=== PATIENT | female | born 1990 | race Caucasian/White ===

== ENCOUNTER 2025-08-19 08:54 | Emergency (ER) | payer OTHER, SELFPAY ==
--- NOTE | ~2025-08-19 | XR_ITS ---
EXAMINATION: XR knee RT min 4V, 08/19/2025 9:14 CDT HISTORY: swelling and pain right knee COMPARISON: No comparisons available. Findings: No acute fracture or malalignment. No significant degenerative changes. Soft tissues unremarkable. Impression: No acute fracture or malalignment. Reviewed, dictated and finalized at location P. Impression: No acute fracture or malalignment.
[2025-08-19 09:00] VITALS: BP 111/92; PULSE 65; RESP 20; TEMP 36.7; O2SAT 100
--- NOTE | 2025-08-19 09:12 | ED_ITS ---
HPI - General Adult General Chief complaint: Extremity Problem,Nontraumatic Stated complaint: Right knee pain and swelling Time Seen by Provider: 08/19/25 09:12 Source: patient, RN notes reviewed and old records reviewed Mode of arrival: ambulatory Limitations: no limitations History of Present Illness HPI narrative: 34 year old female presents to express care with complaints of pain swelling to the right knee starting on Tuesday morning. 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 Patient states that on Tuesday she could apply minimal weight bearing to her right leg and started with pain to the medial aspect of her right knee with radiation of pain into medial thigh area with most swelling noted to the lateral aspect. Patient states that she can tolerate weight bearing better today but continues with pain and swelling. Patient has used ice, elevation, and compression to right knee and has taken Aleve and Tylenol for her discomfort. MD complaint: right knee pain and swelling Onset (ago): day(s) (day 2 of symptoms) Location: right (knee) and lower extremity Radiation: other (into lateral thigh) Severity: moderate Severity scale (1-10): 6 Treatments prior to arrival: cold therapy and other (compression, Aleve and Tylenol) Related Data Home Medications ?Medication ?Instructions ?Recorded ?Confirmed ?Last Taken ?Type venlafaxine 37.5 mg mg PO 08/19/25 Unknown Hist ory capsule,extended release 24 hr Allergies Allergy/AdvReac Type Severity Reaction Status Date / Time adhesive Allergy Unknown Unknown Verified 08/19/25 09:07 strawberry Allergy Unknown Unknown Verified 08/19/25 09:07 Review of Systems Review of Systems: CONSTITUTIONAL: Denies fever, chills, or sweats. EYES: Denies visual changes, redness, or discharge. ENT: Denies rhinorrhea, congestion, sore throat, or otalgia. CARDIOVASCULAR: Denies chest pain, palpitations, or edema. RESPIRATORY: Denies cough or dyspnea. GASTROINTESTINAL: Denies abdominal pain, nausea, vomiting, or diarrhea. GENITOURINARY: Denies dysuria or hematuria. SKIN: Denies rash or itching. MUSCULOSKELETAL: Denies back pain,positive for right knee swelling and medial pain, or myalgia. NEUROLOGIC: Denies headache, numbness, or weakness. PSYCHIATRIC: positive for history of anxiety or depression. All systems reviewed & are unremarkable except as noted in HPI and below PMFSH Past Medical History Medical History (Updated 08/20/25 @ 07:49 by Cathy Cook NP) Anxiety and depression Surgical History Surgical History (Updated 08/19/25 @ 09:50 by Cathy Cook NP) H/O bariatric surgery 2021 Social History Social History (Updated 08/19/25 @ 09:29 by Cathy Cook NP) Smoking status: Never smoker Alcohol intake: current Alcohol use details: social Substance use type: does not use Comments At time of signature, agree with nursing past medical, surgical, social and family history. There is no relevant family history pertinent to the presenting complaint Exam Narrative: GENERAL: Well-appearing, well-nourished, and in no acute distress. HEAD: Normocephalic, atraumatic. EYES: PERRLA and EOMI. ENT: Nares clear, no rhinorrhea or epistaxis. Mucous membranes moist. NECK: Supple. no lymphadenopathy CHEST: Clear to auscultation. No respiratory distress.[id number]% on room air HEART: Regular rate and rhythm. No murmur heard. Normal peripheral pulses. ABDOMEN: Soft, nontender, nondistended, normal active bowel sounds. EXTREMITIES: Normal range of motion. No edema.EXCEPTION noted to right knee pain medial aspect with some radiation of pain to medial thigh region with swelling noted mainly to right lateral knee, stability of knee intact is able to bear weight with some limp noted, able to bend knee with some increased pain circulation and sensation intact to right leg and foot. SKIN: Warm, dry, no rash. NEURO: No focal deficits. Alert and oriented x3. Course Course Emergency Course: Patient is aware of diagnosis, understands and agrees to treatment plan.? Anticipatory guidance given.? Patient agrees to follow-up as directed and is aware of reasons to seek care at the emergency department. Portions of this record may have been created with voice recognition software Level of Care: Express Care Visit Vital Signs Vital signs: Vital Signs Temperature 36.7 C 08/19/25 09:00 Pulse Rate 65 08/19/25 09:00 Respiratory Rate 20 08/19/25 09:00 Blood Pressure 111/92 H 08/19/25 09:00 Pulse Oximetry 100 08/19/25 09:00 Oxygen Delivery Room Air 08/19/25 09:00 Temperature 36.7 C 08/19/25 09:00 Pulse Rate 65 08/19/25 09:00 Respiratory Rate 20 08/19/25 09:00 Blood Pressure 132/79 08/19/25 09:50 Pulse Oximetry 100 08/19/25 09:00 Oxygen Delivery Room Air 08/19/25 09:00 Reviewed Medical Decision Making MDM Narrative Medical decision making narrative: Exam findings and imaging show no acute concerns or changes; patient is non- toxic appearing and is in no distress.? Patient is appropriate for outpatient treatment and follow-up Differential Diagnosis Differential Diagnosis: right knee pain, strain of right knee, swelling right knee Medical Records Medical records reviewed: Yes I reviewed the external patient's medical records. Vital Signs Vital Signs: Vital Signs Temperature 36.7 C 08/19/25 09:00 Pulse Rate 65 08/19/25 09:00 Respiratory Rate 20 08/19/25 09:00 Blood Pressure 111/92 H 08/19/25 09:00 Pulse Oximetry 100 08/19/25 09:00 Oxygen Delivery Room Air 08/19/25 09:00 Temperature 36.7 C 08/19/25 09:00 Pulse Rate 65 08/19/25 09:00 Respiratory Rate 20 08/19/25 09:00 Blood Pressure 132/79 08/19/25 09:50 Pulse Oximetry 100 08/19/25 09:00 Oxygen Delivery Room Air 08/19/25 09:00 reviewed Imaging Data Attestation: I personally reviewed and interpreted this imaging study as follows: My impression: no acute fracture or mal alignment of right knee Radiologist's impression: JANICE Long [id number] XRay Report Signed Patient: David Correa : 1990 MR#: [id number] Age: 34 Acct:[id number] Loc: [facility] ADM Date: 08/19/[address]: Ordering Physician: Cathy Cook APRN Date of Service: 08/19/25 Procedure(s): XR knee RT min 4V Accession Number(s): [id number] cc: Courtney, Tor; Cathy Cook APRN~ EXAMINATION: XR knee RT min 4V, 08/19/2025 9:14 CDT HISTORY: swelling and pain right knee COMPARISON: No comparisons available. Findings: No acute fracture or malalignment. No significant degenerative changes. Soft tissues unremarkable. Impression: No acute fracture or malalignment. Reviewed, dictated and finalized at location P. Please be advised this is a medical document. It is intended for [id number] communication. It is written in medical language and may contain unfamiliar abbreviations or verbiage. Medical documents are intended to carry relevant information, facts as evident, and the clinical opinion of the practitioner at the time of the encounter. This report may have been done utilizing a voice recognition system. Attempts have been made to correct errors. However, there may be uncorrected grammatical, spelling, and recognition errors present. The file time of this note does not necessarily represent the time of service. Dictated By: Kevin Lim MD 08/19/25 0938 Signed By: <Electronically signed by Kevin Lim MD in OV> Critical Care Time Critical Care Time Critical Care Time: No Discharge Plan Discharge Clinical Impression: Right knee pain Qualifiers: Chronicity: acute Qualified Code(s): M25.561 - Pain in right knee Patient Disposition: Home Condition: Stable Instructions: Antibiotic Form, Knee Pain (ED) Additional Instructions: Elastic wrap or orthopedic splint (Neoprene sleeve) as directed for comfort for the next 5-7 days Tylenol for pain recommend Arthritis Strength 650mg take 1 tab routinely every 8 hours Encourage range of motion exercises to right knee Follow-up with orthopedic surgeon if any further complaints or concerns Follow-up with PCP if further problems or concerns Ice to the area 20-30 minutes 4-6 times a day Elevate above heart If your symptoms persist, change or worsen significantly before you can contact your personal physician then please, without delay, go to the emergency department for further evaluation. Follow-up with PCP in 7-10 days or sooner if needed Follow up with PCP soon in regards to your blood pressure which is elevated above threshold for referral. Blood pressure above 120/80 may indicate pre- hypertension.132/79 Patient Language: Turkish Prescriptions: No Action venlafaxine 37.5 mg capsule,extended release 24hr PO Follow-up/Referrals: Courtney,MD Tor [Primary Care Provider, Unknown] Time of Disposition: 09:49 Quality Karli Coma Scale Eyes: Open Verbal: Oriented and Alert Motor: Follows Commands Karli Coma Total Score: 15
--- OUTSIDE RECORDS SUMMARY | 2025-08-19 09:16 | XMS_ITS | Clinical Summary ---
Author Organization [facility] Building B Address [address] [place] [address] Care Team Providers Care Jockey Valet Name Role Phone Manolo Liriano MD Unavailable [phone] Ethan Lala MD Unavailable [phone] Tor Valdez MD Primary Care Provider [phone] Allergies Active Allergy Reactions Criticality Noted Date Comments Adhesive Tape-Silicones Rash Medium 11/05/2018 Lisinopril Cough Low 09/11/2019 Phentermine Headache Low 08/28/2015 [place] Rash Medium Medications vit 38-khua-vbzue-d wood 27mg iron- 800 mcg-250 mg capsule Take by mouth Active blood-glucose meter kit Accu-chek Guide Meter, Test Strips and Lancets. Pt will be testing QID. Quantity 100 with 2 refills on the Test Strips and Lancets. 1 kit 5 Active Additional Information Patient not taking.Reported on 06/07/2025 venlafaxine XR (EFFEXOR-XR) 37.5 mg 24 hr capsule Take 1 capsule (37.5 mg total) by mouth daily 90 capsule 1 5 Active valACYclovir (Valtrex) 1 gram tablet Take 2 tablets BID now and repeat in 12 hours for an episodic dose. 30 tablet 5 Active norethindrone-e .estradioL-iron (LOESTIN 24 FE) 1 mg-20 mcg (24)/75 mg (4) per tablet Take 1 tablet by mouth daily 28 tablet 1 5 07/17/20 26 Active Hospital, Clinic, or Other Facility Administered Medication Ordered Dose Route Frequency Start Date End Date Status etonogestreL (NEXPLANON) implant 68 mgIndications:Pregna ncy Contraception 68 mg subderm Continuous (implanted device) 06/11/2025 06/10/2028 Active Active Problems Problem Noted Date Diagnosed Date Annual physical exam 12/06/2024 Trochanteric bursitis of left hip 03/28/2024 Spinal stenosis of lumbar re gion without neurogenic claudication 03/06/2024 Lumbar radiculopathy 02/15/2024 Generalized anxiety disorder 08/02/2023 Assessment & Plan (12/06/2024 11:53 AM AUTOMATIC BOW MAKER MACHINE TENDER): Chronic condition, stable at this time but notes some mood swings during her 1st trimester of . ROSEANN-7 score: 0 Not currently on PRN medication for anxiety. Continue Effexor 37.5mg PO daily. Assessment & Plan (11/21/2023 6:55 PM AUTOMATIC BOW MAKER MACHINE TENDER): Stable. Cont. Current prescription medications, venlafaxine xr. Assessment & Plan (09/08/2023 12:29 PM CDT): Clinically improved, continue current prescription medications, venlafaxine XR. Assessment & Plan (08/02/2023 3:13 PM CDT): Will restart Effexor XR. Strongly encouraged patient to start going to counseling as well, for herself. H/O herpes simplex infection 06/07/2023 S/P bariatric surgery 11/15/2022 Overview (12/14/2024): 08/30/2022 gastric bypass Assessment & Plan (11/15/2022 8:57 AM AUTOMATIC BOW MAKER MACHINE TENDER): Doing well, modify diet, increase daily exercise. Osteoarthritis of left hip 03/15/2022 Major depressive disorder, s igor episode, in full remission 03/15/2022 Assessment & Plan (12/06/2024 12:05 PM AUTOMATIC BOW MAKER MACHINE TENDER): Chronic condition. Stable at this time. PHQ-9 score today: 0 Continue Effexor 37.5mg PO daily. Emergent BH information given, including 911 with any change such as SI/HI. Seasonal allergic rhinitis due to pollen 022 Assessment & Plan (01/19/2022 10:18 AM CDT): Nasal saline spray (Simply saline, Little Remedies, [place], [place]) 2 second sprays or 2 squeezes into each nostril while looking down over the sink, do not need to sniff in. Followed by Flonase 2 sprays into each nostril while looking down over the sink, do not sniff in or blow nose after use for at least 30 minutes daily Followed by Aquaphor apply pea-size amount into each nostril with a cotton tipped applicator, being carefully just to tuck it into each nostril, then massage soft portion of the outer nose to massage the ointment around inside the nose Humidifier at bedtime Follow up if no improvement in 6 weeks for reflux treatment Mass of soft palate 01/19/2022 Assessment & Plan (01/19/2022 10:19 AM CDT): Call for uvula squamous papilloma removal in Office in the future Dysfunction of left eustachian tube 01/19/2022 Assessment & Plan (01/19/2022 10:24 AM CDT): Nasal saline spray (Simply saline, Little Remedies, [place], [place]) 2 second sprays or 2 squeezes into each nostril while looking down over the sink, do not need to sniff in. Followed by Flonase 2 sprays into each nostril while looking down over the sink, do not sniff in or blow nose after use for at least 30 minutes daily Followed by Aquaphor apply pea-size amount into each nostril with a cotton tipped applicator, being carefully just to tuck it into each nostril, then massage soft portion of the outer nose to massage the ointment around inside the nose Humidifier at bedtime Follow up if no improvement in 6 weeks for reflux treatment H/O epistaxis 01/19/2022 Assessment & Plan (01/19/2022 10:25 AM CDT): Nasal saline spray (Simply saline, Little Remedies, [place], [place]) 2 second sprays or 2 squeezes into each nostril while looking down over the sink, do not need to sniff in. Followed by Flonase 2 sprays into each nostril while looking down over the sink, do not sniff in or blow nose after use for at least 30 minutes daily Followed by Aquaphor apply pea-size amount into each nostril with a cotton tipped applicator, being carefully just to tuck it into each nostril, then massage soft portion of the outer nose to massage the ointment around inside the nose Humidifier at bedtime Insomnia secondary to chronic pain 02/26/2021 Overview (10/19/2024): Left hip pain. FH: colon cancer in first degree relative <60 ye ars old 02/02/2021 Chronic left hip pain 02/02/2021 Assessment & Plan (12/06/2024 12:01 PM AUTOMATIC BOW MAKER MACHINE TENDER): Chronic problem, unstable at this time with a flareup 1 week ago Has been seeing a chiropractor with minimal help Consider MSK relaxant per ENDLESS TRACK VEHICLE SUPERVISOR due to current gestation Recommend heat pads, yoga, gentle stretching exercises to help with relief and strengthening. Assessment & Plan (02/02/2021 4:52 PM CDT): X-rays ordered. Referral placed to Pain Management. Continue [id number]-uswatus pain relievers as needed for pain. Gastroesophageal reflux disease without esophagi tis 02/02/2021 Assessment & Plan (02/02/2021 4:51 PM CDT): Asx. Continue current therapy. History of kidney stones 09/14/2019 Overview (09/14/2019): Added automatically from request for surgery [id number] Class 1 obesity due to exces s calories with serious comorbidity and body mass index (BMI) of 31.0 to 31.9 in adult 12/31/2017 Overview (12/31/2017): Low fat, low carb diet, exercise and weight loss encouraged. Assessment & Plan (05/17/2024 9:43 AM CDT): Wt Readings from Last 3 Encounters: 05/17/24 88.4 kg (194 lb 14.4 oz) 02/06/24 87.1 kg (192 lb) 01/31/24 90.4 kg (199 lb 6.4 oz) BMI Readings from Last 3 Encounters: 05/17/24 31.47 kg/m 02/06/24 30.99 kg/m 01/31/24 32.18 kg/m Not at goal of bmi <30 Continue diet and exercise BMI Follow-up includes: nutrition counseling and exercise counseling. Assessment & Plan (11/15/2022 8:56 AM AUTOMATIC BOW MAKER MACHINE TENDER): Clinically improving. Weight reduction, daily exercise and dietary modifications recommended., as obesity can complicate their hypertension Assessment & Plan (09/23/2022 9:55 AM AUTOMATIC BOW MAKER MACHINE TENDER): Wt Readings from Last 3 Encounters: 09/23/22 132 kg (291 lb) 09/22/22 131.7 kg (290 lb 6.4 oz) 09/06/22 136 kg (299 lb 12.8 oz) BMI Readings from Last 3 Encounters: 09/23/22 46.99 kg/m 09/22/22 46.87 kg/m 09/06/22 48.39 kg/m Improving and s/p bariatric surgery Not at goal of bmi <30 Continue diet and exercise BMI Follow-up includes: nutrition counseling and exercise counseling. Assessment & Plan (05/11/2022 12:39 PM CDT): Patient seeking bariatric surgery. Encouraged dietary modifications. Assessment & Plan (02/02/2021 4:53 PM CDT): Weight reduction, daily exercise and dietary modifications recommended. Assessment & Plan (01/01/2019 9:45 PM AUTOMATIC BOW MAKER MACHINE TENDER): Encourage a weight loss program such as Weight Watchers incorporating dietary changes and aerobic / weight-bearing exercise at least 4-5 times per week, for at least 30-45 minute sessions. Gout 03/23/2014 Overview (02/11/2017): Gout Assessment & Plan (11/15/2022 8:58 AM AUTOMATIC BOW MAKER MACHINE TENDER): Currently asymptomatic. Labs ordered, will follow. Migraine without aura and wi thout status migrainosus, not intractable 03/23/2014 Overview (02/09/2017): Migraine Assessment & Plan (02/02/2021 4:53 PM CDT): Clinically improved, continue current meds. Resolved Problems Problem Noted Date Diagnosed Date Resolved Date 39 weeks gestation of 04/27/2025 06/07/2025 Vaginal delivery 04/27/2025 06/07/2025 Low-lying placenta 12/20/2024 Overview (02/08/2025): Resolved 02/08/25. Morbid (severe) obesity due to excess calories 08/30/2022 11/15/2022 Assessment & Plan (09/23/2022 9:55 AM AUTOMATIC BOW MAKER MACHINE TENDER): BMI Follow-up includes: nutrition counseling and exercise counseling. Abnormal weight gain 05/11/2022 023 Assessment & Plan (05/11/2022 12:39 PM CDT): Patient has been seeing the aeronautical test engineer for the past few months. Encouraged dietary modification. Increase daily exercise. Nail fungus 04/07/2022 12/14/2024 Assessment & Plan (04/07/2022 2:03 PM CDT): Referred to podiatry for further eval/mgmt. BMI 50.0-59.9, adult 03/15/2022 022 Morbid obesity 03/15/2022 04/07/2022 Referred otalgia of left ear 01/19/2022 11/15/2022 Assessment & Plan (01/19/2022 10:23 AM CDT): TMJ dysfunction discussed and Handout provided Sacroiliitis 02/26/2021 01/31/2024 Greater trochanteric bursitis of left hip 02/26/2021 11/15/2022 Primary hypertension 02/02/2021 024 Overview (10/19/2024): Resolved after gastric bypass; off meds since 2022. Assessment & Plan (05/17/2024 9:46 AM CDT): BP Readings from Last 3 Encounters: 05/17/24 90/74 04/11/24 96/63 03/28/24 114/75 Vitals BP 90/74 (BP Location: Left arm, Patient Position: Sitting) Pulse 65 Resp 16 Ht 167.6 cm (5' 5.98) Wt 88.4 kg (194 lb 14.4 oz) SpO2 100% BMI 31.47 kg/m Lab Results Component Value Date POTASSIUM 4.2 11/16/2023 Low end of normal BP Will cut metoprolol to 25 mg every day xl Had some bradycardia And bp has been well controlled Assessment & Plan (11/21/2023 6:55 PM AUTOMATIC BOW MAKER MACHINE TENDER): Blood pressure at goal less than 140/90, continue current prescription medications, metoprolol xl. Assessment & Plan (11/15/2022 8:58 AM AUTOMATIC BOW MAKER MACHINE TENDER): Blood pressure is at goal of less than 140/90, continue current prescription medications, metoprolol XL. Assessment & Plan (09/23/2022 9:55 AM AUTOMATIC BOW MAKER MACHINE TENDER): BP Readings from Last 3 Encounters: 09/23/22 123/82 09/22/22 124/84 09/06/22 122/85 At goa - continue current regimen - currently on torpol xl 50 mg every day Assessment & Plan (05/11/2022 12:38 PM CDT): BP at goal of < 140/90. Cont current Rx meds. Assessment & Plan (02/02/2021 4:51 PM CDT): Clinically improved, continue current meds. Chronic left-sided low back pain without sciatica 12/25/2014 01/31/2024 Overview (02/11/2017): Pain in lower back Assessment & Plan (02/02/2021 4:52 PM CDT): X-ray of lumbar spine ordered. Referral placed to pain management for further evaluation. Continue [id number] pain relievers of choice. Long discussion about decrease in weight, lower back exercises, and daily exercise. Encounters Date Type Department Care Team Description 07/17/2025 Telephone [place] [facility] [address] [employer] [address] [place] [address] Natalie Phelps RN Change OC/Done Nursing 07/09/2025 9:45 AM CDT Office Visit [place] [facility] [address] [facility] [address] [place] [address] Allison Mo NP Encounter for surveillance of Nexplanon subdermal contraceptive (Primary Dx); Breakthrough bleeding on Nexplanon 07/05/2025 Telephone [place] [facility] [address] [place] [phone] Allison Mo NP Appointment Reminder Call 06/12/2025 Telephone [place] [facility] [address] [facility] [address] [place] [phone] Natalie Phelps RN HSV I Outbreak 06/12/2025 Results Follow-Up [place] [facility] [address] [facility] [address] [place] [phone] Manolo Liriano MD Pap and HPV, reflex to HPV Genotypes 06/11/2025 1:00 PM CDT Procedure visit [place] [facility] [address] [facility] [address] [place] [phone] Allison Mo, MICHELLE Nexplanon insertion (Primary Dx) 06/07/2025 8:45 AM CDT Office Visit [place] [facility] [address] [place] [address] Manolo Liriano MD Encounter for visit (Primary Dx); Cervical high risk HPV (human papillomavirus) test positive 06/06/2025 Telephone [place] [facility] [employer] [address] [place] [address] Manolo Liriano MD from Last 3 Months Immunizations Immunization Administration Dates Next Due DTP 05/07/1993 DTaP 04/22/1998,11/12/1994 DTaP / HiB / IPV 05/07/1993,02/23/1993, 3 HPV, Quadrivalent 10/13/2007,06/12/2007,04/11/20 07 Hep A, Adult 10/13/2007,04/11/2007 Hep B Vaccine 05/07/1993,1992,1992 Hep B, Adolescent or Pediatric 05/07/1993 HiB 05/07/1993 Hib (HbOC) 11/12/1994 IPV 11/12/1994 Influenza, Trivalent, Preser vative Free, Intramuscular 08/02/2024 Influenza, Unspecified 09/08/2023,2022(Deferred: Patient Refused),08/09/2022,08/10/2021(Deferre d: Patient Refused),08/07/2020 MMR 04/28/2025,04/22/1998,01/29/1994 Meningococcal Polysaccharide (Menomune) 11/04/2006 OPV 05/07/1993 Pfizer SARS-CoV-2 Monovalent Vaccination (12+ Yrs) PURPLE 08/17/2022,11/18/2020,11/01/2020 Tdap 04/28/2025,12/15/2014,11/04/2006 Varicella 06/02/1995 Surgical History Surgery Date Site/Laterality Comments COLPOSCOPY 11/07/2011 - 11/06/2012 LITHOTRIPSY 10/07/2019 - 11/06/2019 COLONOSCOPY 10/07/2018 - 11/06/2018 ESOPHAGOGASTRODUODENOSCOPY 08/07/2018 - 09/06/2018 CHOLECYSTECTOMY LIVER BIOPSY LIVER SURGERY 2018 BARIATRIC SURGERY 08/07/2022 - 09/06/2022 JOSIAH 2016 Medical History Medical History Date Comments Gout depression Arthritis Morbid obesity (HCC) Headache, migraine Elevated LFTs Leukocytosis Sacroiliitis UTI (urinary tract infection) Kidney stones GERD (gastroesophageal reflux disease) 2015 Hypertension [address] bypass; off meds x one year Low back pain 2016 PONV (postoperative nausea and vomiting) Menstrual problem Family History Medical History Relation Name Comments Hyperlipidemia Father Chin Hypertension Father Chin Drug abuse Maternal Grandfather Mike Morse Colon cancer Maternal Grandmother Larissa (gr eat grandmother) Cancer -colon; /Cancer, colon; Diabetes Maternal Grandmother Larissa (gr eat grandmother) Other Maternal Grandmother Larissa (gr eat grandmother) Colostomy Bag; Asthma Mother Karmen Asthma; Colon cancer Mother Karmen Endometriosis Mother Karmen Endometriosis; Hyperlipidemia Mother Karmen Hypertension Mother Karmen Other Mother Karmen OVARIAN CYSTS; /[place]/rectal cancer; Asthma Mother's Sister Richa Asthma; Migraines Other 1 Family history of Migraines; Hypertension Other 2 Hypertension; Arthritis Paternal Grandfather Shahid Hyperlipidemia Paternal Grandfather Shahid Hyper lipidemia; Hypertension Paternal Grandfather Shahid Diabetes Paternal Grandmother Chiquita Diabete s mellitus; Diabetes type II Paternal Grandmother Chiquita Kathie betes -Type 2; Heart attack Paternal Grandmother Chiquita Hypertension Paternal Grandmother Chiquita Hyperte nsion; Hypertension Sister William Anesthesia problems Neg Hx Relation Name Status Comments Father Chin Maternal Grandfather Mike Morse Maternal Grandmother Larissa (great grandmother) Mother Karmen Alive Mother's Sister Richa Other 1 Other 2 Paternal Grandfather Shahid Paternal Grandmother Chiquita Thomas Social History Tobacco Use Types Packs/Day Years Used Date Smoking Tobacco: Never Smokeless Tobacco: Never Tobacco Cessation:Counseling Given: Not Answered Alcohol Use Standard Drinks/Week Comments No 0 (1 standard drink = 0.6 oz pur e alcohol) Social Connection and Isolation Panel Answer Date Recorded In a typical week, how many times do you talk on the phone with family, friends, or neighbors? More than three times a week 04/27/2025 How often do you get togethe r with friends or relatives? More than three times a week 04/27/2025 How often do you attend [facility] or religion services? Never 04/27/2025 Do you belong to any clubs o r organizations such as latter day groups, unions, fraternal or athletic groups, or school groups? No 04/27/2025 How often do you attend meet ings of the clubs or organizations you belong to? Never 04/27/2025 Are you , , di vorced, , never , or living with a partner? Never 04/27/2025 AUDIT-C Answer Date Recorded Q1: How often do you have a drink containing alcohol? Never 04/27/2025 Q2: How many drinks containi ng alcohol do you have on a typical day when you are drinking? Patient does not drink Q3: How often do you have si x or more drinks on one occasion? Never 04/27/2025 Overall Financial Resource Strain (CARDIA) Answe r Date Recorded How hard is it for you to pa y for the very basics like food, housing, medical care, and heating? Not hard at all 04/27/2025 PHQ-2 Answer Date Recorded PHQ-2 Total Score (If total score is 3 or more points, staff should administer the PHQ-9) 0 04/27/2025 [facility] - Occupational Stress Questionnaire Answer Date Recorded Do you feel stress - tense, restless, nervous, or anxious, or unable to sleep at night because your mind is troubled all the time - these days? Not at all 04/27/2025 Exercise Vital Sign Answer Date Recorde d On average, how many days pe r week do you engage in moderate to strenuous exercise (like a brisk walk)? 0 days 04/27/2025 On average, how many minutes do you engage in exercise at this level? 0 min 04/27/2025 Hunger Vital Sign Answer Date Recorded Within the past 12 months, y ou worried that your food would run out before you got the money to buy more. Never true 04/27/20 25 Within the past 12 months, t he food you bought just didn't last and you didn't have money to get more. Never true 04/27/2025 PRAPARE - Transportation Answer Date Re corded In the past 12 months, has l ack of transportation kept you from medical appointments or from getting medications? No 04/08 In the past 12 months, has l ack of transportation kept you from meetings, work, or from getting things needed for daily living? No 04/27/2025 Housing Stability Vital Sign Answer Wade e Recorded In the last 12 months, was t here a time when you were not able to pay the mortgage or rent on time? No 04/27/2025 In the past 12 months, how m any times have you moved where you were living? 0 04/27/2025 At any time in the past 12 m ont, were you homeless or living in a group home (including now)? No 04/27/2025 Personal Safety Answer Date Recorded Have you ever been in or are you currently in a harmful physical or emotional relationship or is someone making you feel afraid or unsafe? Denies 04/27/2025 Comments No Sex and Gender Information Value Date Recorded Sex Assigned at Not on file Legal Sex Female 11:28 PM AUTOMATIC BOW MAKER MACHINE TENDER Gender Identity Not on file Sexual Orientation Straight 01/12/2021 9: 27 PM AUTOMATIC BOW MAKER MACHINE TENDER Obstetrics History Para Term AB IAB SAB Ectopic Multiple Livin g Live Births 2 2 2 0 0 0 0 0 0 2 2 Date Outcome GA Total Labor Labor/2nd/3rd Weight Sex Type Anes PTL Marita A1 A5 Name Clin 2014 Term 40w 1d 3.232 kg (7 lb 2 oz) M Vag-Sp ont Epidur al N Livin g Hugh Complications:None 2024 Term 39w 0d 0h 48m 0h 37m/0h 06m/0h 05m 2.791 kg (6 lb 2.5 oz) M Vagina l Epidur al N Livin g 8 9 Tutu Paresh learye Brice Motley, Og Martins MD Complications:Precipitous La bor (<3 hours) Delivery Location:This Fac[facility] ([facility]) Last Filed Vital Signs Vital Sign Reading Time Taken Comments Blood Pressure 108/62 07/09/2025 9:43 AM CDT Pulse 65 04/28/2025 4:00 PM CDT Temperature 36.7 C (98.1 F) 04/28/2025 4:00 PM CDT Respiratory Rate 18 04/28/2025 4:00 PM CDT Oxygen Saturation 99% 04/28/2025 7:15 AM CDT Inhaled Oxygen Concentration - - Weight 94.3 kg (208 lb) 07/09/2025 9:43 AM CDT Height 167.6 cm (5' 6) 07/09/2025 9:43 AM CDT Body Mass Index 33.57 07/09/2025 9:43 AM CDT Plan of Treatment Health Maintenance Due Date Last Done Comments Covid-19 Vaccine ( season) 2025 08/17/2022, 08/17/2022, 08/28/2021, Additional history exists Influenza Vaccine (#1) 2025 , 09/08/2023, 08/09/2022, Additional history exists Regular Well Visit/Exam 18-64 12/06/2025 12/06/2024, 02/06/2024, 11/16/2023, Additional history exists Depression Screening 04/27/2026 04/27/2025, 12/06/2024, 05/17/2024, Additional history exists Cervical Cancer Screening 06/07/20262024, 02/06/2024, 01/31/2023, Additional history exists DTaP/Tdap/Td Vaccine (9 - Td or Tdap) 04/28/2035 04/28/2025, 12/15/2014, 11/04/2006, Additional history exists Hepatitis B Screening Completed 05/07/1993 , 05/07/1993, 1992, Additional history exists Varicella Vaccines Discontinued 06/02/1995 HPV Vaccines Completed 10/13/2007, 0804/2007, 04/11/2007 Hepatitis C Screening Completed 10/19/2024 , 04/17/2024, 06/01/2023, Additional history exists Pneumococcal vaccine <65 Aged Out No longer eligible based on patient's age to complete this topic Goals Goal Patient Goal Type Associated Problems Recent Progress Patient-Stated? Author [facility] No Bella Mullins, RN Note: Patient will establish a comfort-function goal and identify the pain level that will allow the patient to perform desired activities and achieve an acceptable quality of life. Procedures Procedure Name Priority Date/Time Associated Diagnosis Comments POCT HCG, URINE Routine 06/11/2025 2:13 PM CDT Nexplanon insertion CO INSERTION DRUG DELIVERY IMPLANT Routine 06/11/2025 1:00 PM CDT Nexplanon insertion PAP AND HPV, REFLEX TO HPV GENOTYPES Routine 06/07/2025 9:08 AM CDT Encounter for visit HEPATITIS C ANTIBODY Routine 10/19/2024 11:52 AM AUTOMATIC BOW MAKER MACHINE TENDER Encounter for supervision of other normal in first trimester from Last 3 Months or Most Recently Relevant to Health Maintenance Results * POCT hCG, urine (06/11/2025 2:13 PM CDT) HCG, ur, POC Negative Negative Lot Number [id number] QC Backgroud Clear Acceptable QC Control Line Acceptable Urine 06/11/2025 2:13 PM CDT Allison Mo NP POINT OF CARE TEST ORDERABLES Fi nal Result * CO INSERTION DRUG DELIVERY IMPLANT (06/11/2025 1:00 PM CDT) Narrative Allison Mo NP - 06/11/2025 1:00 PM CDT Allison Mo NP 06/11/2025 2:41 PM Nexplanon Insertion/Removal/Reinsertion Performed by: Allison Mo NP Authorized by: Allison Mo NP Consent Given by: Patient Verbal consent obtained: Yes Written consent obtained: Yes Risks, alternatives, and patient questions discussed: Yes UPT: Negative Reason: No SI since LMP Procedure: Procedure type: Insertion Left/right arm: Left Local anesthesia used?: Yes Anesthesia: Local infiltration Anesthetic total (ml): 3 Medications: 3 mL lidocaine-EPINEPHrine 1 %-1:100,000 Arm was flexed at the elbow and rotated externally: Yes Insertion site was selected per surgical supervisor's recommendation: Yes Arm was prepped with: Alcohol and Betadine Small stab incision was made in arm: Yes Contraceptive capsule was placed subdermally: Yes Contraceptive capsule was inserted and trocar removed: Yes Nexplanon inserted: Yes Device order: 3 mL lidocaine-EPINEPHrine 1 %-1:100,000 Visualization of notch in stilette and palpitation of device: Yes Palpitation confirms placement by provider and patient: Yes Site was closed with steri-strips and pressure bandage applied: Yes Post-procedure: Patient will follow up after next period: Yes Patient tolerance: Patient tolerated the procedure well with no immediate complications Comments: Patient allowed to palpate device in office after insertion. Informed patient to not apply pressure directly over the insertion site until completely healed. Band-Aid applied over insertion site and patient instructed to leave on and keep dry for 4 days. Pressure dressing applied over Band-Aid and patient instructed to leave on for 24 hours to help reduce bruising and promote healing. Return to office in 1 month for a Nexplanon check. us Allison Mo NP IN CLINIC/BEDSIDE ORDERABLES Fin al Result * Pap and HPV, reflex to HPV Genotypes (06/07/2025 9:08 AM CDT) CLINICAL INFORMATION: [facility] Comment:None given LMP [facility] Comment:A Previous Pap [facility] Comment:NONE GIVEN Prev. Bx [facility] Comment:NONE GIVEN SOURCE: [facility] Comment:Cervix, Endocervix Pap, specimen adequacy [facility] Comment: Satisfactory for evaluation. Endocervical/transformation zone component present. Age and/or menstrual status not provided HPV interp [facility] Comment: Cytology Results: Negative for intraepithelial lesion or malignancy. COMMENTS [facility] Comment: This Pap test has been evaluated with the ThinPrep(R) Imaging System. Program [facility] Comment: AILIN YORK(ASCP) CT Screening Location: [place] [address] [place] [address] CLIA: [id number] Slide preparation performed at: [facility], [address] [place] [address], [address] CLIA: [id number] Comment [facility] Comment: EXPLANATORY NOTE: The Pap is a screening test for cervical cancer. It is not a diagnostic test and is subject to false negative and false positive results. It is most reliable when a satisfactory sample, regularly obtained, is submitted with relevant clinical findings and history, and when the Pap result is evaluated along with historic and current clinical information. Human papillomavirus DNA, High Risk E6/E7 Not Detected NOT DETECTED [facility] Comment: Not Detected High Risk HPV types (16,18,31,33,35,39,45,51,52, 56,58,59,66,68) were not detected. Other HPV types which cause anogenital lesions may be present. The significance of the other types of HPV in malignant processes has not been established. Methodology: Real Time PCR Thin prep-Endocervica l 06/07/2025 9:08 AM CDT 06/10/2025 1:17 AM CDT Manolo Liriano MD LAB CYTOLOGY ORDERABLES Fi nal Result [facility] [address] [place] [address] [facility] [address] [address] * Hepatitis C antibody Blood (10/19/2024 11:52 AM AUTOMATIC BOW MAKER MACHINE TENDER) Hep C Ab Nonreactive Nonreactive Comment: Interpretive Data Nonreactive: Antibodies to HCV not detected. Does NOT exclude the possibility of recent exposure to HCV. Equivocal: Equivocal for HCV antibodies. Supplemental molecular testing will be automatically performed to determine infection status in accordance with current CDC screening recommendations. Reactive: Positive for HCV antibodies. This may represent current or past HCV infection. Supplemental molecular testing will be automatically performed to determine current infection status in accordance with current CDC screening recommendations. Interpretive data was last revised on 2020. Testing performed by: [facility], [address] [place] [address]., [id number] Blood 10/19/2024 11:5 2 AM AUTOMATIC BOW MAKER MACHINE TENDER 10/19/2024 4:50 PM AUTOMATIC BOW MAKER MACHINE TENDER Manolo Liriano MD LAB MICROBIOLOGY - GENERAL ORDERABLES Final Result MELA GONZALES (FORRESTON) 1 [facility] Department [place] [address] from Last 3 Months or Most Recently Relevant to Health Maintenance Insurance [employer] COVENTRY HMO/POS [employer] COVENTRY ASO CMR PPO Advance Directives For more information, please contact: [phone] * Full Code (Latest Code Status on File) Date Activated Date Inactivated Comments 04/27/2025 6:53 AM 04/28/2025 10:49 PM Full CPR in case of cardiopulmonary arrest * Full Code Date Activated Date Inactivated Comments 08/30/2022 5:42 PM 09/02/2022 3:28 PM Care Teams Jockey Valet Relationship Specialty Start Date End Date Tor Valdez MD [address] [place] [address] [address] [place] [address] PCP - General Family Medicine 05/17/24 Manolo Liriano MD [address] [place] [address] [address] [facility] [place] [address] [employer] Department Manager Obstetrics and Gynecology 02/02/21 Ethan Lala MD [address] [place] [address] [place] [address] Consulting Physician Urology 02/02/21
--- OUTSIDE RECORDS SUMMARY | 2025-08-19 09:16 | XMS_ITS | Encounter Summary ---
Author Organization [facility] Healthcare Address [address] [place] [address] Care Team Providers Care Holter Scanning Technician Name Role Phone Anisha Mai DO Primary Care Provider [phone] Manolo Liriano MD Unavailable [phone] Ethan Lala MD Unavailable [phone] Tor Valdez MD Primary Care Provider [phone] Encounter Details Date Type Department Care Team (Late st Contact Info) Description 02/06/2021 Telephone [facility] 2 [facility] A, Juan. [address] [place] [address] Maco Grimm MD 2 [facility] [address] [place] [address] Social History Tobacco Use Types Packs/Day Years Used Date Smoking Tobacco: Never Smokeless Tobacco: Never Alcohol Use Standard Drinks/Week Comments No 0 (1 standard drink = 0.6 oz pur e alcohol) PHQ-2 Answer Date Recorded PHQ-2 Total Score (If total score is 3 or more points, staff should administer the PHQ-9) 0 02/02/2021 Comments No Sex and Gender Information Value Date Recorded Sex Assigned at Not on file Legal Sex Female 11:28 PM SPECIFICATION MANAGER Gender Identity Not on file Sexual Orientation Straight 01/12/2021 9: 27 PM SPECIFICATION MANAGER documented as of this encounter Plan of Treatment Not on file documented as of this encounter Visit Diagnoses Not on filedocumented in this encounter Additional Health Concerns Infection Onset Date Last Indicated Resolved Time COVID: Suspected 10/05/2021 10/05/2021 10/05/2021 7:10 PM SPECIFICATION MANAGER COVID: Suspected 10/27/2023 10/27/2023 10/27/2023 8:50 AM SPECIFICATION MANAGER documented as of this encounter Care Teams Holter Scanning Technician Relationship Specialty Start Date End Date nAisha Mai DO PCP - General Family Medicine 02/02/21 05/16/24 Tor Valdez MD 2 [facility] [address] [place] [address] PCP - General Family Medicine 05/17/24 Manolo Liriano MD 4 [facility] [address] [place] [address] E Tailer Obstetrics and Gynecology 02/02/21 Ethan Lala MD 4 [facility] [address] [place] [address] Consulting Physician Urology 02/02/21 documented as of this encounter
--- OUTSIDE RECORDS SUMMARY | 2025-08-19 09:16 | XMS_ITS | Clinical Summary ---
Author Organization [facility] Address [address] [place] [address] Phone Care Team Providers Care Maori Physiotherapist Name Role Phone Provider, None Primary Care Provider Unavailabl e Allergies Active Allergy Reactions Criticality Noted Date Comments Lisinopril Other (see Comments) Low 09/11/2019 Phentermine Other (see Comments) Low 08/28/2015 [place] Extract Rash Medium 05/02/2025 Wound Dressing Adhesive Rash Medium 11/05/2018 Medications ibuprofen (MOTRIN) 600 MG Tablet Take 600 mg by mouth. 04/28/2025 Active Acetaminophen 500 MG Capsule Take 1,000 mg by mouth. Active Active Problems No known active problems Social History Tobacco Use Types Packs/Day Years Used Date Smoking Tobacco: Never Smokeless Tobacco: Never Tobacco Cessation:Counseling Given: Not Answered Alcohol Use Standard Drinks/Week Comments Not Currently 0 (1 standard drink = 0.6 oz pur e alcohol) Comments Unknown Sex and Gender Information Value Date Recorded Sex Assigned at Not on file Legal Sex Female 10:00 PM CDT Gender Identity Not on file Sexual Orientation Not on file Last Filed Vital Signs Vital Sign Reading Time Taken Comments Blood Pressure 134/86 05/02/2025 10:33 AM CDT Pulse 72 05/02/2025 10:33 AM CDT Temperature 36.6 C (97.9 F) 05/02/2025 10:33 AM CDT Respiratory Rate 16 05/02/2025 10:33 AM CDT Oxygen Saturation 96% 05/02/2025 10:33 AM CDT Inhaled Oxygen Concentration - - Weight - - Height - - Body Mass Index - - Plan of Treatment Health Maintenance Due Date Last Done Comments Hepatitis C Virus (HCV) Screening 1992 Pap Smear 2013 Cervical Cancer Screening (CCS) 2022 HPV/Cotest 2022 Influenza Immunization (#1) 07/08/202507/09, 09/08/2023, 08/09/2022, Additional history exists SARS-COV-2 Immunization ( season) 2025 08/17/2022, 08/28/2021, 11/18/2020, Additional history exists Respiratory Syncytial Virus (RSV) Immunization (Adult) (1 - 1-dose 75+ series) 2067 Hepatitis B Immunization Completed 993, 1992, 1992 Meningococcal Immunization (ACWY) Aged Out 11/04/2006 No longer eligible based on patient's age to complete this topic Human Papillomavirus (HPV) Immunization Completed 10/13/2007, 06/12/2007, 04/11/2007 TdaP Immunization Completed 04/28/2025, , 11/04/2006 Pneumococcal Immunization Combined Aged Out No longer eligible based on patient's age to complete this topic Rotavirus Immunization Aged Out No lo nger eligible based on patient's age to complete this topic Insurance [employer] Care Teams Maori Physiotherapist Relationship Specialty Start Date End Date Provider, None [place] PCP - General 05/02/25
--- OUTSIDE RECORDS SUMMARY | 2025-08-19 09:16 | XMS_ITS | Encounter Summary ---
Author Organization [facility] Address [address] [place] [address] Phone Care Team Providers Care Sock Liner Name Role Phone Burak Wright MD Primary Care Provider + [phone] Patrick Mejia MD Primary Care Provider + [phone] Burak Wright MD Primary Care Provider [phone] Anisha Mai DO Primary Care Provider + [phone] Manolo Liriano MD Unavailable [phone] Ethan Lala MD Unavailable [phone] Tor Valdez MD Primary Care Provider [phone] Encounter Details Date Type Department Care Team (Late st Contact Info) Description 10/12/2017 Orders Only [facility] ProviderAdan MD [address] [place] [address] Social History Tobacco Use Types Packs/Day Years Used Date Smoking Tobacco: Never Smokeless Tobacco: Never Alcohol Use Standard Drinks/Week Comments Yes 0 (1 standard drink = 0.6 oz pur e alcohol) Comments Unknown Sex and Gender Information Value Date Recorded Sex Assigned at Not on file Legal Sex Female 11:28 PM DIE WELDER Gender Identity Not on file Sexual Orientation Straight 01/12/2021 9: 27 PM DIE WELDER documented as of this encounter Plan of Treatment Not on file documented as of this encounter Procedures Procedure Name Priority Date/Time Associated Diagnosis Comments DISCHARGE LABORATORY CUMULATIVE REPORT 10/12/2017 12:00 AM DIE WELDER documented in this encounter Results * DISCHARGE LABORATORY CUMULATIVE REPORT (10/12/2017 12:00 AM DIE WELDER) Narrative 10/12/2017 12:00 AM DIE WELDER Ordered by an unspecified provider. us Historical Provider LAB BLOOD ORDERABLES Ally l Result documented in this encounter Visit Diagnoses Not on filedocumented in this encounter Additional Health Concerns Infection Onset Date Last Indicated Resolved Time COVID: Suspected 10/08/2020 10/08/2020 10/09/2020 9:32 AM DIE WELDER Respiratory Infection (MIR), contact + droplet Comment:Automatically added due to negative COVID-19 result. 10/09/2020 10/09/2020 10/23/2020 3:0 5 AM DIE WELDER COVID: Suspected 10/12/2020 10/12/2020 10/13/2020 4:20 AM DIE WELDER COVID: Suspected 10/05/2021 10/05/2021 10/05/2021 7:10 PM DIE WELDER COVID: Suspected 10/27/2023 10/27/2023 10/27/2023 8:50 AM DIE WELDER documented as of this encounter Care Teams Sock Liner Relationship Specialty Start Date End Date Burak Wrigth MD [address] [place] [address] PCP - General 02/04/17 10/23/17 Patrick Mejia MD [address] [place] [address] PCP - General 10/24/17 02/14/18 Burak Wright MD [address] [place] [address] PCP - General 02/15/18 02/01/21 Anisha Mai DO [address] [place] [address] PCP - General Family Medicine 02/02/21 05/16/24 Tor Valdez MD 2 [facility] [address] [place] [address], [place] [address] PCP - General Family Medicine 05/17/24 Manolo Liriano MD 4 [facility] [address] [facility] [place] [address] Vehicle Maintenance Supervisor Obstetrics and Gynecology 02/02/21 Ethan Lala MD 4 [facility] [place] [address] Consulting Physician Urology 02/02/21 documented as of this encounter
[2025-08-19 09:50] VITALS: BP 132/79
== END 2025-08-19 09:55 | disposition home or self-care (01) ==
PROVIDERS: Emergency Provider Registered Nurse; PCP Family Medicine
DX: M25.561 Pain in right knee (principal); F41.9 Anxiety disorder, unspecified; F32.A Depression, unspecified
CPT/HCPCS: 73564; 99203; G0463